=== PATIENT | female | born 2000 | race African-American/Black ===

== ENCOUNTER 2024-01-14 21:31 | Day surgery (SDC) | payer OTHER ==
[2024-01-14 22:03] VITALS: BMI 30.2
[2024-01-14] MEDS ORDERED: hydrALAZINE 20 MG/ML VIAL SLOW IVP PRN (22:41)
== END 2024-01-14 22:54 | disposition left against medical advice (07) ==
LOC: CSHLD/OP 21:31
PROVIDERS: ATTEND Obstetrics & Gynecology
DX: O47.03 False labor before 37 completed weeks of gestation, third trimester (principal); O32.1XX0 Maternal care for breech presentation, not applicable or unspecified; Z79.899 Other long term (current) drug therapy; Z88.0 Allergy status to penicillin; Z3A.35 35 weeks gestation of pregnancy